=== PATIENT | male | born 1985 | race African-American/Black ===

== ENCOUNTER 2021-03-03 11:16 | Inpatient (IN) | payer OTHER ==
[2021-03-03 11:24] VITALS: BMI 33.3
[2021-03-03] MEDS ORDERED: HYDROCHLOROTHIAZIDE 25 MG TABLET (FP) PO ONE (11:48)
[2021-03-03] MEDS ORDERED: ALBUTEROL SO4 2.5/IPRATROPIUM 0.5 INH SOL 3 ML VIAL.NEB. NEB ONE ×2 (11:48→11:49)
[2021-03-03] MEDS ORDERED: ONDANSETRON 4 MG/2 ML VIAL IVPUSH ONE (11:50)
[2021-03-03] MEDS ORDERED: ONDANSETRON 4 MG/2 ML VIAL ONE (12:04)
[2021-03-03] MEDS ORDERED: HYDROCHLOROTHIAZIDE 25 MG TABLET (FP) ONE (12:04)
[2021-03-03 12:32] LABS: BASO % 0.7 % (0-2.0); EOS % 0.5 % (0-4.5); HEMATOCRIT 44.7 % (35.4-49); HEMOGLOBIN 15.9 GM/dL (11.7-16.9); LYMPH % 8.9 % (8-40); MCH 30.2 pg (25.7-33.7); MCHC 35.5 g/dl (32.0-35.9); MEAN CELL VOLUME 85.1 fl (80-96); MEAN PLT VOLUME 10.3 fl (7.5-11.1); MONO % 1.9 % (3.8-10.2); PLATELET COUNT 237 K/MM3 (134-434); RBC 5.26 M/mm3 (4.00-5.60); RDW 13.9 % (11.9-15.9); WHITE BLOOD COUNT 14.7 K/mm3 (4.0-10.0)
[2021-03-03 12:56] LABS: CHLORIDE 108 mmol/L (98-107); SODIUM 139 mmol/L (136-145)
[2021-03-03 12:57] LABS: CALCIUM 9.2 mg/dL (8.5-10.1)
[2021-03-03 12:58] LABS: ALBUMIN 4.2 g/dl (3.4-5.0); ANION GAP 4 MMOL/L (8-16); BLOOD UREA NITROGEN 11.8 mg/dL (7-18); CO2 27 mmol/L (21-32); GLUCOSE,RANDOM 110 mg/dL (74-106)
[2021-03-03 13:01] LABS: SGOT/AST 35 U/L (15-37); SGPT/ALT 29 U/L (13-61)
[2021-03-03 13:03] LABS: BILIRUBIN,TOTAL 0.5 mg/dL (0.2-1); TOT PROT 8.6 g/dl (6.4-8.2)
[2021-03-03 13:04] LABS: ALK PHOS 65 U/L (45-117)
[2021-03-03] MEDS ORDERED: amLODIPine BESYLATE 5 MG TABLET (FP) PO ONE (13:47)
[2021-03-03] MEDS ORDERED: amLODIPine BESYLATE 5 MG TABLET (FP) ONE (13:57)
[2021-03-03] MEDS ORDERED: hydrALAZINE HCL 20 MG/ML VIAL IVPUSH ONE (16:15)
[2021-03-03] MEDS ORDERED: hydrALAZINE HCL 20 MG/ML VIAL ONE (16:30)
[2021-03-03] MEDS ORDERED: ALBUTEROL SO4 2 MG TABLET PO ONE (17:01)
[2021-03-03] MEDS ORDERED: ALBUTEROL SO4 HFA INHALER IH ONE ×2 (17:08→17:17)
[2021-03-03] MEDS ORDERED: ENALAPRILAT DIHYDRATE 1.25 MG/1 ML VIAL IVPB ONE (17:10)
[2021-03-03] MEDS ORDERED: ENALAPRILAT DIHYDRATE 2.5 MG/2 ML VIAL IVPB ONE (17:25)
[2021-03-03] MEDS ORDERED: hydrALAZINE HCL 20 MG/ML VIAL IVPUSH PRN (18:24)
[2021-03-03] MEDS ORDERED: ALBUTEROL SO4 2.5/IPRATROPIUM 0.5 INH SOL 3 ML VIAL.NEB. NEB PRN (18:26)
[2021-03-03 19:39] LABS: ARTERIAL BLD GAS O2 SATURATION 91.9 mmHg (95-98); ARTERIAL BLOOD GAS BASE EXCESS 2.2 mmol/L (-2-2); ARTERIAL BLOOD GAS PO2 60.9 mmHg (80-100); ARTERIAL BLOOD GAS pH 7.425 (7.350-7.450)
[2021-03-03 19:41] LABS: ALLENS TEST POSITIVE
[2021-03-03 19:56] LABS: EPI CELLS 6 /uL (0-25.1); HYALINE CASTS 0 /uL (0-3.1); PH,URINE 7.5 (5.0-8.0); URINE APPEARANCE CLEAR; URINE BACTERIA 14 /uL (0-1359); URINE BILIRUBIN NEGATIVE (NEGATIVE); URINE COLOR YELLOW; URINE GLUCOSE (UA) NEGATIVE (NEGATIVE); URINE KETONE NEGATIVE (NEGATIVE); URINE LEUK ESTERASE NEGATIVE (NEGATIVE); URINE NITRITE NEGATIVE (NEGATIVE); URINE PROTEIN 1+ (NEGATIVE); URINE RBC 16 /uL (0-23.9); URINE WBC 3 /uL (0-25.8)
[2021-03-04] MEDS ORDERED: hydrALAZINE HCL 20 MG/ML VIAL IVPUSH PRN (00:21)
[2021-03-04] MEDS ORDERED: ALBUTEROL SO4 2.5/IPRATROPIUM 0.5 INH SOL 3 ML VIAL.NEB. NEB PRN (00:21)
[2021-03-04] MEDS ORDERED: LABETALOL HCL 5 MG/1 ML (100MG/20 ML VIAL) IVPUSH ONE ×3 (01:12→05:54)
[2021-03-04] MEDS ORDERED: ACETAMINOPHEN 1000 MG/100 ML VIAL (NON FORMULARY) IVPB PRN (02:43)
[2021-03-04] MEDS ORDERED: ONDANSETRON 4 MG/2 ML VIAL IVPUSH ONE (05:56)
[2021-03-04] MEDS ORDERED: PROCHLORPERAZINE MALEATE 5 MG TABLET PO PRN (05:57)
[2021-03-04] MEDS: LIDOCAINE 5% TOPICAL PATCH TP SCH ×2 (06:31→09:59)
[2021-03-04 08:43] LABS: BASO % 0.1 % (0-2.0); HEMATOCRIT 43.3 % (35.4-49); HEMOGLOBIN 15.2 GM/dL (11.7-16.9); LYMPH % 8.8 % (8-40); MCH 29.7 pg (25.7-33.7); MEAN CELL VOLUME 84.9 fl (80-96); MEAN PLT VOLUME 10.8 fl (7.5-11.1); NEUT % 83.1 % (42.8-82.8); PLATELET COUNT 253 K/MM3 (134-434); RBC 5.11 M/mm3 (4.00-5.60); RDW 13.8 % (11.9-15.9); WHITE BLOOD COUNT 16.2 K/mm3 (4.0-10.0)
[2021-03-04 09:04] LABS: ALBUMIN 4.5 g/dl (3.4-5.0); BLOOD UREA NITROGEN 14.7 mg/dL (7-18); CALCIUM 9.3 mg/dL (8.5-10.1)
[2021-03-04 09:07] LABS: CREATININE 1.1 mg/dL (0.55-1.3); PHOSPHOROUS 4.9 mg/dL (2.5-4.9)
[2021-03-04 09:09] LABS: BILIRUBIN,TOTAL 0.5 mg/dL (0.2-1); TOT PROT 8.4 g/dl (6.4-8.2)
[2021-03-04 09:19] VITALS: TEMP 98.9
[2021-03-04] MEDS: KCL 10 MEQ IVPB 10 MEQ/100 ML INFUS.BAG IVPB SCH ×3 (09:59→12:19)
[2021-03-04] MEDS ORDERED: amLODIPine BESYLATE 5 MG TABLET (FP) PO SCH (10:00)
[2021-03-04] MEDS ORDERED: ENOXAPARIN NA (PORCINE) 40 MG/0.4 ML DISP.SYRIN SQ SCH ×2 (10:00)
[2021-03-04] MEDS ORDERED: HYDROCHLOROTHIAZIDE 25 MG TABLET (FP) PO SCH ×2 (10:00)
[2021-03-04 11:56] LABS: PLATELET ESTIMATE NORMAL
[2021-03-04] MEDS ORDERED: LISINOPRIL 20 MG TABLET PO ONE (15:55)
[2021-03-04 16:21] VITALS: BP 161/119; PULSE 66
[2021-03-04] MEDS ORDERED: LIDOCAINE PATCH REMOVAL MC SCH (22:00)
[2021-03-05] MEDS ORDERED: amLODIPine BESYLATE 5 MG TABLET (FP) PO SCH (10:00)
== END 2021-03-04 17:50 | disposition left against medical advice (07) | DRG 199 ==
LOC: JER 11:16 → JERBED 16:27 → J5S 20:05 → J4W 23:55
PROVIDERS: ADMIT Internal Medicine; ATTEND Internal Medicine
DX: I16.1 Hypertensive emergency (principal); R11.2 Nausea with vomiting, unspecified; J45.909 Unspecified asthma, uncomplicated; D72.829 Elevated white blood cell count, unspecified; I67.4 Hypertensive encephalopathy
CPT/HCPCS: 36415; 36600; 70450-TC; 71045-TC-FY; 80053; 81003; 82803; 82962; 83036; 83735; 84100; 84443; 84484; 85025; 93005; 93010; 94640; 99285-25; C9803; J0131; U0003; U0005

== ENCOUNTER 2023-06-23 22:26 | Emergency (ER) | payer OTHER ==
[2023-06-23 22:30] VITALS: BMI 33.3
[2023-06-23] MEDS ORDERED: morphine CARPU-JECT 4 MG/1 ML DISP.SYRIN IVPUSH ONE (23:54)
[2023-06-24] MEDS ORDERED: morphine SULFATE 4 MG/ML VIAL ONE (00:33)
[2023-06-24] MEDS ORDERED: CEFAZOLIN 1 GM in DEXTROSE 5%-WATER - 50 ML IVPB ONE (00:34)
[2023-06-24] MEDS ORDERED: DIPHTH,PERTUSS(ACELL),TET 0.5 ML DISP.SYRIN IM ONE ×2 (00:35→00:53)
[2023-06-24] MEDS ORDERED: ceFAZolin SODIUM 1 GM VIAL ONE (00:52)
[2023-06-24 01:11] LABS: BASO % 0.7 % (0-2.0); EOS % 1.9 % (0-4.5); HEMATOCRIT 39.2 % (35.4-49); HEMOGLOBIN 13.4 GM/dL (11.7-16.9); LYMPH % 16.5 % (8-40); MCH 29.3 pg (25.7-33.7); MCHC 34.3 g/dl (32.0-35.9); MEAN CELL VOLUME 85.5 fl (80-96); MEAN PLT VOLUME 9.7 fl (7.5-11.1); MONO % 5.7 % (3.8-10.2); NEUT % 75.2 % (42.8-82.8); PLATELET COUNT 242 10^3/uL (134-434); RBC 4.58 M/mm3 (4.00-5.60); RDW 14.6 % (11.9-15.9); WHITE BLOOD COUNT 7.3 K/mm3 (4.0-10.0)
[2023-06-24 01:13] LABS: INR 1.04 (0.83-1.09); PROTHROMBIN TIME (PATIENT) 12.1 SEC (9.7-13.0)
[2023-06-24 01:15] LABS: ACTIVATED PTT 35.7 SECONDS (25.2-36.5)
[2023-06-24 01:20] LABS: POTASSIUM 4.4 mmol/L (3.5-5.1)
[2023-06-24 01:22] LABS: CALCIUM 8.8 mg/dL (8.5-10.1)
[2023-06-24 01:23] LABS: BLOOD UREA NITROGEN 10.9 mg/dL (7-18)
[2023-06-24 01:27] LABS: CREATININE 1.1 mg/dL (0.55-1.3)
[2023-06-24 01:28] LABS: BILIRUBIN,TOTAL 0.4 mg/dL (0.2-1); TOT PROT 7.5 g/dl (6.4-8.2)
[2023-06-24 03:08] VITALS: BP 122/87; PULSE 87; RESP 20; TEMP 98
== END 2023-06-24 03:08 | disposition short-term general hospital (02) ==
LOC: JERFT 22:26 → JER 22:26
PROC: 3E033GC Introduction of Other Therapeutic Substance into Peripheral Vein, Percutaneous Approach (ICD-10-PCS; 2023-06-23)
PROC: 3E03329 Introduction of Other Anti-infective into Peripheral Vein, Percutaneous Approach (ICD-10-PCS; principal; 2023-06-24)
PROC: 3E0234Z Introduction of Serum, Toxoid and Vaccine into Muscle, Percutaneous Approach (ICD-10-PCS; 2023-06-24)
DX: S62.612B Displaced fracture of proximal phalanx of right middle finger, initial encounter for open fracture (principal); M79.641 Pain in right hand; W22.01XA Walked into wall, initial encounter; Z20.822 Contact with and (suspected) exposure to COVID-19
CPT/HCPCS: 0241U-QW; 36415; 73130-TC-RT-FY; 80053; 85025; 85610; 85730; 86850; 86900; 86901; 90471; 90715; 96365; 96375; 99285-25